=== PATIENT | female | born 1980 | race Caucasian/White ===

== ENCOUNTER 2020-04-14 10:45 | Outpatient (REF) | payer OTHER, SELFPAY ==
[2020-04-15 09:36] LABS: BV Int Neg Control Negative (Negative); BV Int Pos Control Positive (Positive)
[2020-04-15 12:43] LABS: CT PCR NOT DETECTED (Not Detect.); NG PCR NOT DETECTED (Not Detect.)
[2020-04-18 22:07] LABS: HPV mRNA E6/E7 rflx Not Detected (Not Detected)
== END 2020-04-14 10:46 | disposition home or self-care (01) ==
LOC: HO.LAB 10:45
PROVIDERS: PCP Pediatrics; Visit Provider Advanced Practice Midwife
DX: B96.89 Other specified bacterial agents as the cause of diseases classified elsewhere (principal); N76.0 Acute vaginitis; R87.610 Atypical squamous cells of undetermined significance on cytologic smear of cervix (ASC-US); R87.810 Cervical high risk human papillomavirus (HPV) DNA test positive; Z11.8 Encounter for screening for other infectious and parasitic diseases; Z11.3 Encounter for screening for infections with a predominantly sexual mode of transmission; F17.210 Nicotine dependence, cigarettes, uncomplicated
CPT/HCPCS: 87480; 87491; 87510; 87591; 87624; 87625; 87660; 88142; 99212

== ENCOUNTER 2020-05-26 10:44 | Emergency (ER) | payer OTHER, SELFPAY ==
[2020-05-26 10:54] VITALS: BP 137/81; PULSE 116; RESP 19; TEMP 36.7; O2SAT 96; BMI 32.3
[2020-05-26 10:56] VITALS: BP 137/81; PULSE 116; RESP 19; TEMP 36.7; O2SAT 96
--- NOTE | 2020-05-26 11:53 | MHC.RECOVSUP ---
? Reason for consult:Continuity of care o Current location: Bed 03 o Identified substance use concern:ETOH - Support This RC attempted to talk to her, pt. was not receptive to talking to this RC. ? Intervention:N/A ? Plan: N/A o ? Additional information: N/A
--- NOTE | 2020-05-26 11:54 | PC.NURSE ---
[place] contacted for dose verification. Release signed and faxed, awaiting a call back
[2020-05-26 12:32] LABS: MANUAL DIFF FLAG NO
[2020-05-26 12:34] LABS: Basophils Absolute Auto 0.1 X10*3/uL (0.0-0.2); Basophils Percent Auto 0.5 % (0-2); Eosinophils Percent Auto 0.4 % (0-4); Hematocrit 40.5 % (37-47); Hemoglobin 14.4 g/dl (12.0-16.0); Imm Gran Abs Auto 0.03 X10*3/uL (0.00-0.03); Imm Gran Pct Auto 0.3 % (0.0-0.4); Lymphocytes Absolute Auto 3.4 X10*3/uL (1.2-4.9); Lymphocytes Percent Auto 30.9 % (20-40); Mean Corpuscular HGB Conc 35.6 g/dl (31.0-35.0); Mean Corpuscular Hemoglobin 31.4 pg (27.0-33.0); Mean Corpuscular Volume 88.2 fL (80-98); Mean Platelet Volume 9.1 fL (9.4-12.3); Monocytes Absolute Auto 0.7 X10*3/uL (0.1-1.2); Monocytes Percent Auto 6.5 % (2-11); Neutrophils Absolute Auto 6.8 X10*3/uL (2.0-8.3); Neutrophils Percent Auto 61.4 % (45-73); Platelet Count 450 X10*3/uL (160-400); Red Blood Count 4.59 X10*6/uL (4.20-5.50); Red Cell Distribution Width 12.2 % (11.0-16.0); White Blood Count 11.1 X10*3/uL (4.8-10.8)
[2020-05-26 13:01] LABS: Ethanol 273 mg/dL
[2020-05-26 13:08] LABS: Influenza A PCR NEGATIVE (Negative); Influenza B PCR NEGATIVE (Negative); Resp Syncy Virus RNA Qual PCR NEGATIVE (Negative); SARS COV2 PCR INHOUSE NEGATIVE (Negative)
[2020-05-26 13:08] LABS: Amphetamine Screen Urine Not Detected (Not Detect); Barbiturates, Urine Not Detected (Not Detect); Benzodiazepines Screen Urine Not Detected (Not Detect); Cannabinoid Screen Urine Not Detected (Not Detect); Cocaine Screen Urine Not Detected (Not Detect); Opiate Screen Urine Not Detected (Not Detect); Phencyclidine Screen Urine Not Detected (Not Detect)
[2020-05-26 13:09] LABS: Lipase 27 U/L (8-78)
[2020-05-26 13:10] LABS: Alanine Aminotransferase 34 U/L (0-31); Albumin Level 4.6 g/dL (3.5-5.0); Alkaline Phosphatase 66 U/L (39-117); Anion Gap 19 (12-20); Aspartate Amino Transferase 31 U/L (5-31); Bilirubin Direct 0.2 mg/dL (0.0-0.5); Bilirubin Total 0.4 mg/dL (0.0-1.0); Blood Urea Nitrogen 8 mg/dL (9-16); Calcium 8.9 mg/dL (8.4-10.2); Carbon Dioxide 18 mmol/L (22-29); Chloride 108 mmol/L (96-108); Creatinine Clr Calc Pharmacy 125.3; Estimated Glomerular Filt Rate > 60; Glucose Random 142 mg/dL (60-115); Magnesium 2.1 mg/dL (1.6-2.6); Potassium 3.1 mmol/l (3.3-5.1); Sodium 142 mmol/L (135-145); Total Protein 7.3 g/dL (6.5-8.0)
[2020-05-26 13:16] LABS: HCG Quantitative < 2 mIU/mL
[2020-05-26] MEDS: Potassium Chloride Packet 20 MEQ PACKET 40 MEQ PO (13:50)
--- NOTE | 2020-05-26 14:53 | ED.PSYCH ---
HPI - Psych General Chief Complaint: Psychiatric Symptoms Stated Complaint: crisis Time Seen by Provider: 05/26/20 11:19 Source: patient Mode of arrival: ambulatory Limitations: no limitations History of Present Illness HPI Narrative: 39yoF c PMHx of alcoholism, depression and mental illness presenting to the ED c c/o increased depression with SI thoughts and not feeling safe at home due to she is drinking a lot alcohol and she has a young children at home the youngest is 2 years old. She reports she was sober for a year and then relapsed in the past 10 days and she drank 6 nips today. She denies drug usage. Reports she has an apartment to stay in with her children. Denies any HI/auditory visual hallucination or any self-injury mcclendon. Denies any fevers, chills, headaches, dizziness, change in vision, sore throat, chest pain, shortness of breath, cough, abdominal pain, back pain, rashes, dysuria, diarrhea or constipation or any other symptoms complaints or concerns at this time. Related Data Home Medications Medication Instructions Recorded Confirmed fluoxetine 40 mg capsule 40 mg PO DAILY 04/01/20 05/26/20 buprenorphine-naloxone [Suboxone] 1 film SUBLINGUAL DAILY 05/26/20 05/26/20 doxepin 3 cap PO BEDTIME 05/26/20 05/26/20 quetiapine 1 - 3 tab PO BEDTIME 05/26/20 05/26/20 Allergies Allergy/AdvReac Type Severity Reaction Status Date / Time No Known Allergies Allergy Verified 04/01/20 09:24 [No Known Allergies*] Review of Systems Review of Systems: Constitutional : No Fever, No Chills ENT/Mouth : No Ear Pain, No Nasal Congestion, No sore throat Eyes: No Eye Pain, No Swelling, No Redness Cardiovascular : No Chest Pain, No SOB Respiratory : No Cough, No Sputum, No Dyspnea Gastrointestinal : No ingestions, No Nausea, No Vomiting, No Diarrhea, No Hematochezia, No Melena Genitourinary : No Dysuria, No Urinary Frequency, No Hematuria Musculoskeletal : No Myalgias Skin : No Skin Lesions, No rash Neuro : No Weakness, No Numbness, No Paresthesias, No Dizziness, No Headache Psych : + Anxiety, + Depression, + SI, + thoughts of self injury, No HI, No AVH, Heme/Lymph: No Lymphadenopathy Endocrine : No Polyuria, No Polydipsia Yes all other systems are reviewed and are negative [facility] Past Medical History Attestation statement: The following information was validated with the patient. Medical History Alcohol dependence ASCUS with positive high risk HPV Depression Hypertriglyceridemia Left foot drop Substance abuse Trichomonas contact, treated Surgical History History of breast lump removal Hx of appendectomy Hx of tonsillectomy Family History Family History Maternal Grandmother History of quadruple bypass Diabetes mellitus CVD (cardiovascular disease) Social History Social History Alcohol intake: current Alcohol intake frequency: 3 or more drinks per day Alcohol type: hard liquor Smoking Status: Current every day smoker Tobacco Type: Cigarette Cigarettes Per Day: 10 Smoked in Last 30 Days: Yes Use of substances other than those prescribed or required for medical reasons: No Any prior treatment program specific to substance use: Yes Advance Directives: No Advance Directives Information Provided: No Gender identity: female Physical Exam Vital Signs: Vital Signs: Last Vital Signs Temp 98.0 F 05/26/20 10:56 Pulse 116 H 05/26/20 10:56 Resp 19 05/26/20 10:56 BP 137/81 05/26/20 10:56 Pulse Ox 96 05/26/20 10:56 Body Mass Index 32.3 vital signs have been reviewed as normal and appeared to be correct. Blood pressure normal. Heart rate normal. Respiration rate normal. Temperature normal. Oxygen saturation normal. Appearance: Alert. Oriented X3. Very tearful although No acute distress. Head: Normal external exam. Normocephalic. Atraumatic. No Hammond signs noted. No raccoon eyes noted Eyes: PERRLA. EOMI. Conjunctiva and sclera normal. Eyelids normal. ENT: EAC normal. TM's Normal. Pharynx normal. Uvula midline. Moist mucous membranes. No trismus noted. No drooling noted. No muffled voice noted. Neck: Normal inspection. Neck supple. FROM. No adenopathy. Thyroid Normal. No meningeal signs. No neck mass noted. CVS: Normal heart rate and rhythm. Heart sound normal. No murmurs noted. Pulses normal throughout. Respiratory: No respiratory distress. Painless inspiration. Breath sounds normal. No wheezes/rales/rhonchi noted. Chest nontender. No accessory muscle usage noted or decreased air movement noted. Abdomen: Soft and nontender. Bowel sounds normal in all 4 quadrants. No distention noted. No organomegaly noted. No visible injury noted. Back: No CVA tenderness. Full range of motion noted. Skin: Skin warm and dry. Normal skin color. Normal skin turgor. No rashes/lesions/lacerations noted. Extremities: No lower extremity edema. Extremities exhibit normal range of motion. Extremities nontender. Neuro: Oriented X 3. No motor deficit. No sensory deficit. Reflexes normal. Psych: Appearance grossly normal, well-kept, mental status normal, speech is pressured. movement normal, speech clear, patient appears very sad and anxious along with depressed. Is cooperative. Normal thought process. Normal thought content. Does not have good insight. Does not have good Judgment. Course Course Course Narrative: 11:20am - 39yoF c PMHx of alcoholism, depression and mental illness presenting to the ED c c/o increased depression with SI thoughts. and recent relapse on ETOH. - Plan: Labs, UA, Drug urine screen. Provide 2 mg of Ativan then obtain a BHN evaluation once medically clear. Reevaluation(s) Reevaluation #1: - mild leukocytosis at 11,000. - potassium 3.1. - ALT 34. - ETOH level 273 - All other labs WNL - 40 mEq of p.o. potassium ordered at this time. Patient is currently resting respirations even and unlabored in no apparent distress. - patient medically cleared at this time awaiting BHN evaluation. Will continue to monitor. Time: 13:13 [facility] - Psych Restraints Face to Face Assessment: Face to Face Assessment: Current Situation: After assessment of the patient, a review of the pertinent medical record and a discussion with nursing staff, I feel the patient requires a restrain intervention. Reaction To: [] Medical Condition: [] Behavioral State: [] Continued Need: [] Medical Records Attestation: I reviewed the patient's medical records. Lab Data Result diagrams: 05/26/20 12:11 05/26/20 12:11 Labs: Lab Results 05/26/20 05/26/20 05/26/20 Range/Units 11:56 12:11 12:11 WBC 11.1 H (4.8-10.8) X10*3/uL RBC 4.59 (4.20-5.50) X10*6/uL Hgb 14.4 (12.0-16.0) g/dl Hct 40.5 (37-47) % MCV 88.2 (80-98) fL MCH 31.4 (27.0-33.0) pg MCHC 35.6 H (31.0-35.0) g/dl RDW 12.2 (11.0-16.0) % Plt Count 450 H (160-400) X10*3/uL MPV 9.1 L (9.4-12.3) fL Immature Gran % (Auto) 0.3 (0.0-0.4) % Neut % (Auto) 61.4 (45-73) % Lymph % (Auto) 30.9 (20-40) % Candler % (Auto) 6.5 (2-11) % Eos % (Auto) 0.4 (0-4) % Baso % (Auto) 0.5 (0-2) % Lymph # (Auto) 3.4 (1.2-4.9) X10*3/uL Candler # (Auto) 0.7 (0.1-1.2) X10*3/uL Eos # (Auto) 0.0 (0.0-0.4) X10*3/uL Baso # (Auto) 0.1 (0.0-0.2) X10*3/uL Abs Immat Gran (auto) 0.03 (0.00-0.03) X10*3/uL Absolute Neuts (auto) 6.8 (2.0-8.3) X10*3/uL Absolute Nucleated RBC 0.000 (0.0-0.012) X10*3/uL Nucleated RBC % (auto) 0.0 (0.0-0.2) /100WBC Hold Purple Top Hold Blue Top SEE NOTE Sodium (135-145) mmol/L Potassium (3.3-5.1) mmol/l Chloride (96-108) mmol/L Carbon Dioxide (22-29) mmol/L Anion Gap (12-20) BUN (9-16) mg/dL Creatinine (0.5-1.4) mg/dL Estim Creat Clear Calc Estimated GFR Random Glucose (60-115) mg/dL Calcium (8.4-10.2) mg/dL Magnesium (1.6-2.6) mg/dL Total Bilirubin (0.0-1.0) mg/dL Direct Bilirubin (0.0-0.5) mg/dL AST (5-31) U/L ALT (0-31) U/L Alkaline Phosphatase (39-117) U/L Total Protein (6.5-8.0) g/dL Albumin (3.5-5.0) g/dL Lipase (8-78) U/L Beta HCG, Quant mIU/mL Urine Opiates Screen Not Detected (Not Detect) Ur Barbiturates Screen Not Detected (Not Detect) Ur Phencyclidine Scrn Not Detected (Not Detect) Ur Amphetamines Screen Not Detected (Not Detect) U Benzodiazepines Scrn Not Detected (Not Detect) Urine Cocaine Screen Not Detected (Not Detect) U Marijuana (THC) Screen Not Detected (Not Detect) Ethyl Alcohol mg/dL Coronavirus (PCR) (Negative) Influenza Type A (PCR) (Negative) Influenza Type B (PCR) (Negative) RSV RNA Qual (PCR) (Negative) 05/26/20 05/26/20 05/26/20 Range/Units 12:11 12:11 12:11 WBC (4.8-10.8) X10*3/uL RBC (4.20-5.50) X10*6/uL Hgb (12.0-16.0) g/dl Hct (37-47) % MCV (80-98) fL MCH (27.0-33.0) pg MCHC (31.0-35.0) g/dl RDW (11.0-16.0) % Plt Count (160-400) X10*3/uL MPV (9.4-12.3) fL Immature Gran % (Auto) (0.0-0.4) % Neut % (Auto) (45-73) % Lymph % (Auto) (20-40) % Candler % (Auto) (2-11) % Eos % (Auto) (0-4) % Baso % (Auto) (0-2) % Lymph # (Auto) (1.2-4.9) X10*3/uL Candler # (Auto) (0.1-1.2) X10*3/uL Eos # (Auto) (0.0-0.4) X10*3/uL Baso # (Auto) (0.0-0.2) X10*3/uL Abs Immat Gran (auto) (0.00-0.03) X10*3/uL Absolute Neuts (auto) (2.0-8.3) X10*3/uL Absolute Nucleated RBC (0.0-0.012) X10*3/uL Nucleated RBC % (auto) (0.0-0.2) /100WBC Hold Purple Top SEE NOTE Hold Blue Top Sodium 142 (135-145) mmol/L Potassium 3.1 L (3.3-5.1) mmol/l Chloride 108 (96-108) mmol/L Carbon Dioxide 18 L (22-29) mmol/L Anion Gap 19 (12-20) BUN 8 L (9-16) mg/dL Creatinine 0.67 (0.5-1.4) mg/dL Estim Creat Clear Calc 125.3 Estimated GFR > 60 Random Glucose 142 H (60-115) mg/dL Calcium 8.9 (8.4-10.2) mg/dL Magnesium 2.1 (1.6-2.6) mg/dL Total Bilirubin 0.4 (0.0-1.0) mg/dL Direct Bilirubin 0.2 (0.0-0.5) mg/dL AST 31 (5-31) U/L ALT 34 H (0-31) U/L Alkaline Phosphatase 66 (39-117) U/L Total Protein 7.3 (6.5-8.0) g/dL Albumin 4.6 (3.5-5.0) g/dL Lipase (8-78) U/L Beta HCG, Quant < 2 mIU/mL Urine Opiates Screen (Not Detect) Ur Barbiturates Screen (Not Detect) Ur Phencyclidine Scrn (Not Detect) Ur Amphetamines Screen (Not Detect) U Benzodiazepines Scrn (Not Detect) Urine Cocaine Screen (Not Detect) U Marijuana (THC) Screen (Not Detect) Ethyl Alcohol mg/dL Coronavirus (PCR) (Negative) Influenza Type A (PCR) (Negative) Influenza Type B (PCR) (Negative) RSV RNA Qual (PCR) (Negative) 05/26/20 05/26/20 05/26/20 Range/Units 12:11 12:11 12:12 WBC (4.8-10.8) X10*3/uL RBC (4.20-5.50) X10*6/uL Hgb (12.0-16.0) g/dl Hct (37-47) % MCV (80-98) fL MCH (27.0-33.0) pg MCHC (31.0-35.0) g/dl RDW (11.0-16.0) % Plt Count (160-400) X10*3/uL MPV (9.4-12.3) fL Immature Gran % (Auto) (0.0-0.4) % Neut % (Auto) (45-73) % Lymph % (Auto) (20-40) % Candler % (Auto) (2-11) % Eos % (Auto) (0-4) % Baso % (Auto) (0-2) % Lymph # (Auto) (1.2-4.9) X10*3/uL Candler # (Auto) (0.1-1.2) X10*3/uL Eos # (Auto) (0.0-0.4) X10*3/uL Baso # (Auto) (0.0-0.2) X10*3/uL Abs Immat Gran (auto) (0.00-0.03) X10*3/uL Absolute Neuts (auto) (2.0-8.3) X10*3/uL Absolute Nucleated RBC (0.0-0.012) X10*3/uL Nucleated RBC % (auto) (0.0-0.2) /100WBC Hold Purple Top Hold Blue Top Sodium (135-145) mmol/L Potassium (3.3-5.1) mmol/l Chloride (96-108) mmol/L Carbon Dioxide (22-29) mmol/L Anion Gap (12-20) BUN (9-16) mg/dL Creatinine (0.5-1.4) mg/dL Estim Creat Clear Calc Estimated GFR Random Glucose (60-115) mg/dL Calcium (8.4-10.2) mg/dL Magnesium (1.6-2.6) mg/dL Total Bilirubin (0.0-1.0) mg/dL Direct Bilirubin (0.0-0.5) mg/dL AST (5-31) U/L ALT (0-31) U/L Alkaline Phosphatase (39-117) U/L Total Protein (6.5-8.0) g/dL Albumin (3.5-5.0) g/dL Lipase 27 (8-78) U/L Beta HCG, Quant mIU/mL Urine Opiates Screen (Not Detect) Ur Barbiturates Screen (Not Detect) Ur Phencyclidine Scrn (Not Detect) Ur Amphetamines Screen (Not Detect) U Benzodiazepines Scrn (Not Detect) Urine Cocaine Screen (Not Detect) U Marijuana (THC) Screen (Not Detect) Ethyl Alcohol 273 mg/dL Coronavirus (PCR) NEGATIVE (Negative) Influenza Type A (PCR) NEGATIVE (Negative) Influenza Type B (PCR) NEGATIVE (Negative) RSV RNA Qual (PCR) NEGATIVE (Negative) Discharge Plan Discharge Clinical Impression: Depression, Suicidal ideation, Acute anxiety, Acute alcohol intoxication Prescriptions: No Action buprenorphine-naloxone [Suboxone] 8-2 mg film 1 film sublingual DAILY RF: 0 quetiapine 25 mg tablet 1 - 3 tab PO BEDTIME RF: 0 doxepin 25 mg capsule 3 cap PO BEDTIME RF: 0
--- NOTE | 2020-05-26 15:52 | MHC.CARE ---
Addendum entered by Bing Mohan [facility] 05/26/20 16:36: CARE Team confirms that fax was received by [facility] and plan is for pt to be assessed between 1899 and 1999. Original Note: CARE Team speaks with Steph from [facility] crisis services. Pt was referred to [facility] for assessment, however, given BAL of 273 at 1211, pt will not be able to be assessed until approx 7PM. [facility] agrees to send a clinician between 1899 and 1999. This information is communicated to ED nurse.
[2020-05-26 16:29] VITALS: BP 107/76; PULSE 111; RESP 18; TEMP 37; O2SAT 95
--- NOTE | 2020-05-26 19:23 | PC.NURSE ---
Report received. PT sleeping in her room. Breathing is even and unlabored. PT waiting to be seen by N.
[2020-05-26 21:28] VITALS: BP 143/93; PULSE 91; RESP 20; TEMP 36.8; O2SAT 97
[2020-05-26] MEDS: QUEtiapine Fumarate 25 MG TABLET PO (21:33)
[2020-05-26] MEDS: LORazepam 1 MG TABLET 2 MG PO (21:33)
--- NOTE | 2020-05-26 21:40 | ECG_ITS ---
Test Reason : CHESTPAIN Blood Pressure : / mmHG Vent. Rate : 087 BPM Atrial Rate : 087 BPM P-R Int : 148 ms QRS Dur : 076 ms QT Int : 380 ms P-R-T Axes : 074 078 073 degrees QTc Int : 457 ms Normal sinus rhythm Normal ECG When compared with ECG of 30-JAN-2020 12:59, No significant change was found Referred By: Margarita Lindsey Electronically Signed By:ADARSH CROCKETT
[2020-05-26] MEDS: Doxepin HCl 25 MG CAPSULE 75 MG PO (21:43)
[2020-05-26 23:40] VITALS: BP 112/63; PULSE 85; RESP 18; TEMP 36.4; O2SAT 97
--- NOTE | 2020-05-27 00:32 | PC.NURSE ---
BHN at bedside.
--- NOTE | 2020-05-27 03:11 | PC.NURSE ---
Seen by CODEY. Plan is to provide PT with resources for detox and discharge in the morning.
[2020-05-27 06:00] VITALS: BP 104/74; PULSE 83; RESP 18; TEMP 36.7; O2SAT 95
--- NOTE | 2020-05-27 07:02 | PC.NURSE ---
Report recieved. Pt currently sleeping, respirations even and unlabored, in no apparent distress.
--- NOTE | 2020-05-27 09:01 | PC.NURSE ---
Addendum entered by Bruna Mckeon 05/27/20 09:11: After making phone calls pt stated she was feeling anxious and starting to feel some symptoms of withdrawal. Pt asking for ativan at this time. Pt medicated per EMAR. Original Note: Pt currently calling detox, calm and cooperative, aware of plan of care. PT denies complaints, denies symptoms of withdrawal at this time.
[2020-05-27] MEDS: Buprenorphine/Naloxone 8/2 mg FILM 1 FILM SUBLINGUAL (09:13)
[2020-05-27] MEDS: LORazepam 1 MG TABLET 2 MG PO (09:13)
[2020-05-27 09:16] VITALS: BP 136/88; PULSE 121; TEMP 36.4; O2SAT 97
--- NOTE | 2020-05-27 11:43 | MHC.RECOVSUP ---
Recovery Support note: Patient has been accepted to [facility] for a 3PM admission. [facility] requires patient to have prescribed medications in her possession prior to arrival. Discussed case with patient's RN and ED provider, provider will group underwriter a prescription for the necessary medications. Patient reports she has transportation and will be able to go to the pharmacy on to get the medications on her way to [facility]. This group underwriter available to assist with transportation if this does not work out.
== END 2020-05-27 12:07 | disposition home or self-care (01) ==
PROVIDERS: Physician Assistant Medical; Emergency Provider Emergency Medicine Emergency Medical Services; PCP Pediatrics
DX: F33.1 Major depressive disorder, recurrent, moderate (principal); R45.851 Suicidal ideations; F41.1 Generalized anxiety disorder; F43.0 Acute stress reaction; F10.129 Alcohol abuse with intoxication, unspecified; Y90.8 Blood alcohol level of 240 mg/100 ml or more; Z11.59 Encounter for screening for other viral diseases; F17.210 Nicotine dependence, cigarettes, uncomplicated; Z71.6 Tobacco abuse counseling; Z79.899 Other long term (current) drug therapy
CPT/HCPCS: 0241U; 36415; 80048; 80076; 80307; 80320; 83690; 83735; 84702; 85025; 93005; 99285; J0574

== ENCOUNTER 2020-07-20 09:46 | Outpatient (REF) | payer OTHER, SELFPAY | END 2020-07-20 09:47 | disposition home or self-care (01) | LOC: HO.LAB 09:46 | PROVIDERS: PCP Pediatrics; Visit Provider Obstetrics & Gynecology | DX: R87.610 Atypical squamous cells of undetermined significance on cytologic smear of cervix (ASC-US) (principal); R87.810 Cervical high risk human papillomavirus (HPV) DNA test positive; E78.1 Pure hyperglyceridemia; F19.10 Other psychoactive substance abuse, uncomplicated; F10.20 Alcohol dependence, uncomplicated; F32.9 Major depressive disorder, single episode, unspecified; F17.210 Nicotine dependence, cigarettes, uncomplicated | CPT/HCPCS: 57454; 88305 ==

== ENCOUNTER → 2020-08-03 15:11 | Outpatient (BNVA) | payer OTHER, SELFPAY | PROVIDERS: PCP Pediatrics; Visit Provider Obstetrics & Gynecology ==

== ENCOUNTER → 2021-10-11 08:37 | Outpatient (BNVA) | payer OTHER, SELFPAY | PROVIDERS: Visit Provider Physician Assistant | DX: Z13.89 Encounter for screening for other disorder (principal) | CPT/HCPCS: 99203 ==

== ENCOUNTER → 2021-10-13 09:38 | Outpatient (BNVA) | payer OTHER, SELFPAY | PROVIDERS: Visit Provider Physician Assistant | DX: Z13.89 Encounter for screening for other disorder (principal) | CPT/HCPCS: 99213 ==

== ENCOUNTER 2021-11-16 16:35 | Outpatient (REF) | payer OTHER, SELFPAY ==
[2021-11-22 22:56] LABS: HPV mRNA E6/E7 rflx Not Detected (Not Detected)
== END 2021-11-16 16:36 | disposition home or self-care (01) ==
LOC: HO.LNP 16:35
PROVIDERS: Visit Provider Obstetrics & Gynecology
DX: Z01.419 Encounter for gynecological examination (general) (routine) without abnormal findings (principal); Z11.51 Encounter for screening for human papillomavirus (HPV)
CPT/HCPCS: 87624; 88142

== ENCOUNTER 2022-02-15 12:45 | Outpatient (REF) | payer OTHER, SELFPAY ==
--- NOTE | 2022-02-15 15:18 | MHC.AU.ANO ---
Adult Audiological Evaluation Date of Visit: 02/15/22 Reason for Appointment: Since having COVID about 10 months ago, patient has been experiencing increased hearing difficulty and pressure in her ears. 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 She is unable to understand patients and colleagues unless she is close to them and [id number]. The pressure in her ears will occasionally clear if tries to pop her ears, but it doesn't take long for the pressure and hearing difficulty to build back up again. 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 Otoscopy: Right Ear: Thick, yellow fluid behind TM Left Ear: Thick, yellow fluid behind TM Tympanometry: Tympanometry performed due to: To assess integrity of the middle ear system Right Ear: Non-compliant Middle Ear System (Type B) Left Ear: Non-compliant Middle Ear System (Type B) Otoacoustic Emissions: Did not test due to extent of middle ear dysfunction Hearing Evaluation: Transducer(s) Used: Insert Earphones Method: Conventional Audiometry Stimuli Used: Pure Tones Right Ear: Description of Hearing: Mild conductive hearing loss from 250-2000 Hz, rising to normal by 8000 Hz Left Ear: Description of Hearing: Mild conductive hearing loss from 250-2000 Hz, rising to normal by 8000 Hz Speech Recognition Threshold (SRT): Method Used: Recorded Lists Stimuli Used: Spondee Words Right Ear: 20 dBHL Left Ear: 25 dBHL Word Discrimination: Method: Recorded Lists Word Lists Used: W-22 Right Ear: 100% at 60 dBHL Left Ear: 100% at 60 dBHL Interpretation of Results: Patient presents with thick, yellow fluid noted behind tympanic membranes and flat, Type B, tympanograms. Mild conductive hearing loss is present bilaterally. At the moment, sound likely has a muffled or dull quality, as if one is listening underwater. It can be difficult to understand speech, especially if there is background noise, if someone is talking from a distance, or if someone is speaking softly. Recommendations: Referral to Ear, Nose, and Throat is highly recommended. In the meantime, follow-up with the PCP may be warranted to discuss short-term management of the middle ear dysfunction. Diagnosis: Primary Diagnosis: H90.0 Conductive Hearing Loss, Bilateral Secondary Diagnosis: H69.93 Unspecified Eustachian Tube Dysfunction, Bilateral Signature: Provider: Jon Stevenson, CCC-A
== END 2022-02-15 12:46 | disposition home or self-care (01) ==
LOC: HO.SH 12:45
PROVIDERS: Visit Provider Student in an Organized Health Care Education/Training Program
DX: Z01.118 Encounter for examination of ears and hearing with other abnormal findings (principal); H90.0 Conductive hearing loss, bilateral; H69.93 Unspecified Eustachian tube disorder, bilateral
CPT/HCPCS: 92557; 92567

== ENCOUNTER 2025-03-10 13:37 | Outpatient (AMB) | payer OTHER, SELFPAY ==
--- NOTE | 2025-03-10 13:39 | A.OFFVIS_ITS ---
Vital Signs 03/10/25 13:44 Height 5 ft 4 in Weight 210 lb BMI 36.0 BP 122/64 Blood Pressure Location Rt brachial Position Sitting Pulse 92 Pulse Source Pulse Oximeter Pulse Oximetry (%) 96 Oxygen Delivery Method Room Air Intake Visit Reasons: Colonoscopy Screening Intake Note: Patient new consult for pre Colonoscopy screening Patient cc: Pt denies any GI sx or concerns at this time. No pertinent surgical or FMHx. Rope Twisting Machine Operator Required: No Accompanied by: Self / Same As Patient Allergies No Known Allergies (No Known Allergies*) Allergy (Verified 03/10/25 13:39) Medication List - Last Reconciled 03/10/25 by Cathy Crowder CNP atorvastatin 10 mg PO DAILY buprenorphine-naloxone 8-2 mg (Suboxone) 1 film sublingual DAILY fluoxetine 40 mg PO QAM quetiapine mg PO valacyclovir (Valtrex) 500 mg PO BID PRN HPI HPI Colonoscopy Screening: Details: Patient is a 44-year-old female with PMH of depression, sleep apena, opioid use disorder in remission. Referred by PCP for pre colonoscopy screening. Vani reports bowel movements every other day, which is reduced from her prior baseline of once daily. She notes this change may be related to recent weight gain. She recalls an episode of constipation over a year ago, relieved with [id number] laxatives, but has not experienced significant constipation since. Current stools are solid and large, not hard or pellet-like; she describes needing to push but not strain excessively. Appetite is good, and there has been no recent fever or illness. She reports weight gain but no unexplained weight loss. Comorbid conditions include severe sleep apnea (not yet on CPAP) and dyslipidemia managed with atorvastatin. She has a remote history of alcohol use disorder, now on Suboxone, and reports being off alcohol for six years. She recently noted transient, non-itchy, warm reddish patches on her legs, partially resolved, consistent with her self-described concerns for cellulitis; she reports no new medications or exposures and links the rash temporally with her weight changes. Patient denies: fever/chills, n/v, appetite changes, pyrosis, regurgitation,dysphasia, unintentional wt loss, ab pain or melena/hematochezia. Social hx: -ETOH cessation six years ago -Remote cocaine and prescription opioid misuse (oral, no IV), currently on Suboxone for alcohol cessation, denies active recreational drug use -current 1/2 ppd smoker -[facility] - family hx as below -denies personal hx of CA -denies significant cardiopulmonary history, expect where documented. -tolerated anesthesia in the past without difficulty. [facility] Medical History (Updated 03/10/25 @ 14:29 by Cathy Crowder CNP) Rash Sleep apnea Dyslipidemia Constipation Colon cancer screening Trichomonas contact, treated ASCUS with positive high risk HPV Substance abuse Depression Left foot drop Hypertriglyceridemia Alcohol dependence Surgical History History of breast lump removal Hx of tonsillectomy Hx of appendectomy Family History (Updated 03/10/25 @ 13:55 by Cathy Crowder CNP) Maternal Grandmother History of quadruple bypass Diabetes mellitus CVD (cardiovascular disease) Paternal Grandfather Colon cancer screening Social History Alcohol intake: current Alcohol intake frequency: 3 or more drinks per day Alcohol type: hard liquor Comment: Helped relieve withdrawal symptoms Cigarettes Per Day: 10 Gender identity: Female Female Reproductive History Menstrual Age of Menarche: 10 Review of Systems Const Reports as per HPI ENT Reports as per HPI Card Reports as per HPI Resp Reports as per HPI GI Reports as per HPI Reports as per HPI Physical Exam Vital Signs: Last Vital Signs Pulse 92 03/10/25 13:44 BP 122/64 03/10/25 13:44 Pulse Ox 96 03/10/25 13:44 Oxygen Delivery Method Room Air 03/10/25 13:44 BMI result Body Mass Index 36.0 Const General: healthy appearing, no acute distress and well developed Nutritional Appearance: average body habitus Orientation/consciousness: patient oriented x3 HEENT Head: Yes normal to inspection, Yes normocephalic and Yes atraumatic Face and sinus: Yes normal facial exam Mouth: lip normal Eyes General: appearance normal, both eyes and all related structures Neck Neck: Yes normal visual inspection Resp Effort & Inspection: normal respiratory effort, able to speak in complete sentences, no tracheal deviation and symmetric chest movement Cardio Jugular venous distension: no JVD Heart sounds: Murmur heart sound present GI Inspection: Yes obesity Neuro General: patient oriented x3 Gait exam (Neuro): Normal gait present Psych Appearance: grossly normal Mental Status: mental status grossly normal Speech and movement: Normal speech and movement present Affect: normal affect Attitude: cooperative Thought process: Normal thought process present Thought content: Normal thought content present Insight: Good insight present (Psych) Judgement: Good judgement present (Psych) Assessment & Plan Assessment & Plan (1) Colon cancer screening: Code(s): Z12.11 - Encounter for screening for malignant neoplasm of colon Category: Medical Plan: Due for index screening colonoscopy. No alarm features Medications: -prescriptions for laxative tablets and PEG sent to pharmacy; instructions on clear liquid diet given. Patient educated on scheduling process, procedure preparation, including avoiding certain foods and ensuring clear liquid intake Advised on necessity for ride post-procedure due to sedation. (2) Constipation: Code(s): K59.00 - Constipation, unspecified Category: Medical Qualifiers: Constipation type: unspecified constipation type Qualified Code(s): K59.00 - Constipation, unspecified Plan: Mild constipation. BMs every other day, solid/large stools, needs to push but no excessive straining, responds to OTC laxatives - Additional Testing: None specific unless symptoms worsen - Medication Management: Short-term augmentative bowel regimen (per protocol for colonoscopy prep) - Lifestyle Recommendations: Maintain adequate hydration, fiber intake; review bowel habits after colonoscopy - Follow-Up: Reassess bowel function post-procedure (3) Dyslipidemia: Code(s): E78.5 - Hyperlipidemia, unspecified Category: Medical Plan: Known hypercholesterolemia, on atorvastatin, previously elevated cholesterol Additional Testing: Lipid profile as part of fasting labs Medication Management: Continue atorvastatin Lifestyle Recommendations: Encourage ongoing dietary management, follow up with PCP/specialist as arranged Follow-Up: As scheduled with PCP for lipid management (4) Sleep apnea: Code(s): G47.30 - Sleep apnea, unspecified Category: Medical Qualifiers: Sleep apnea type: unspecified type Qualified Code(s): G47.30 - Sleep apnea, unspecified Plan: Severe obstructive sleep apnea per pt. Recently diagnosed by sleep study, not yet on treatment - Additional Testing: None requested at this visit; patient arranging for CPAP - Medication Management: None initiated here - Lifestyle Recommendations: Prompt initiation of CPAP; encourage sleep hygiene, weight management - Follow-Up: As arranged with PCP/sleep medicine (5) Rash: Code(s): R21 - Rash and other nonspecific skin eruption Category: Medical Plan: Recent, partially resolved, non-itchy, reported as warm erythroderma; not clearly infectious/dermatologic at present. No alarm features. Additional Testing: Consider dermatology or PCP eval if rash recurs or worsens Medication Management: None at present Lifestyle Recommendations: Monitor for recurrence, signs of infection; optimize skin hygiene Follow-Up: Seek medical attention if symptoms return/progress (pain, fever, persistent redness, swelling) Plan Follow-up after colonoscopy or sooner as needed Time: I spent a total of 30 minutes on the date of encounter which includes: Preparing to see the patient (reviewed previous documentation, test results and medical history) Performing a medically appropriate exam and/or evaluation Ordering medications, tests, and procedures Documenting clinical information in the health record Orders: Orders Complete Blood Count Auto Diff Today Cathy Crowder CNP Z12.11 - Encounter for screening for malignant neoplasm of colon Comprehensive [place]. Panel Fast Today Cathy Crowder CNP Z12.11 - Encounter for screening for malignant neoplasm of colon Lipid Panel Today Cathy Crowder CNP E78.5 - Hyperlipidemia, unspecified Referrals GI Procedure Notification Cathy Crowder CNP Z12.11 - Encounter for screening for malignant neoplasm of colon Medications: New simethicone (Gas Relief (simethicone)) per colonoscopy prep instructions 125 mg PO ONCE 4 caps 0RF abdominal distention Cathy Crowder CNP peg 3350-electrolytes 236-22.74-6.74 -5.86 gram until fecal effluent is clear 240 mL PO ONCE 4,000 mL 0RF Cathy Crowder CNP bisacodyl Take per colonoscopy instructions 5 mg PO ONCE 4 tabs 0RF Cathy Crowder CNP Changed From valacyclovir (Valtrex) Start on the 1st day of the outbreak 500 mg PO BID 3 days 6 tabs 3RF To valacyclovir (Valtrex) Start on the 1st day of the outbreak 500 mg PO BID PRN Vernon Lorenz MD Coding Level of Care Code New Pt New Pt Level 3 (09544) Patient Type New Diagnoses Colon cancer screening Z12.11 Constipation, unspecified constipation type K59.00 Constipation type: unspecified constipation type Dyslipidemia E78.5 Sleep apnea, unspecified type G47.30 Sleep apnea type: unspecified type Rash R21
[2025-03-10 13:44] VITALS: BP 122/64; PULSE 92; O2SAT 96; BMI 36.0
--- OUTSIDE RECORDS SUMMARY | 2025-03-10 17:23 | XMS_ITS | Patient Health Record ---
Author Organization [facility] Address [address] [place] [address] Care Team Providers Care Blasting Contract Man Name Role Phone Joaquín Spring MD Primary Care Provider Unavail able Nathalia Ramirez Unavailable [phone] Allergies No Known Allergies Reason For Referral No Information Medications Medication SIG (Take, Route, Frequency, Duration) Notes Start Date End Date Status QUEtiapine Fumarate 100 MG Oral; Duration: 30 Days Active Suboxone 8-2 MG Sublingual; Duration : 28 Days Active Doxepin HCl 25 MG Oral; Duration: 30 Days Active Social History Tobacco Use: Social History Observation Description Date Details (start date - stop date) Current Smoker NA - NA Tobacco Use/Smoking Question Answer Notes Are you a: current smoker How many cigarettes a day do you smoke? 6-10 Alcohol Screen Question Answer Notes Did you have a drink containing alcohol in the p ast year? No Points 0 Interpretation Negative Tobacco use other than smoking: Question Answer Notes Are you an other tobacco user? No Problems Problem Type SNOMED Code ICD Code Onset Dates Problem Status W/U Status Risk Notes Problem Acquired hallux valgus (38355985) Hallux valgus (acquired), right foot (M20.11) Active confirmed Problem Smoker (67108119) Smoker (F17.200) Active confirmed Plan Of Treatment No Information Insurance Providers Payer Name Payer Address Payer Phone Subscriber Number Group Number Insured Name Patient Relationship to Insured Coverage Start Date Coverage End Date Blue Benefits [address] [address] [place] [address] [id number] Vani Pak Self - patient is the insured Medical (General) History Medical History History ICD Code Chicken pox Surgical History Surgery Date(Month/Year) appendectomy 1995 tonsillectomy 1996
--- OUTSIDE RECORDS SUMMARY | 2025-03-10 17:23 | XMS_ITS | Encounter Summary ---
Author Organization [employer] Address [address] [place] [address] [address] [place] [address] Care Team Providers Care Pinion Polisher Name Role Phone Edy Lees DDS Primary Care Provider Encounter Details Date Type Department Care Team (Late st Contact Info) Description 12/18/2023 Orders Only [facility] ADULT DENTAL [address] [place] [address] Michelle Manning DDS [address] [place] [address] Social History Tobacco Use Types Packs/Day Years Used Date Smoking Tobacco: Every Day Cigarettes Smokeless Tobacco: Never Alcohol Use Standard Drinks/Week Comments Defer 0 (1 standard drink = 0.6 oz pur e alcohol) Comments Unknown Sex and Gender Information Value Date Recorded Sex Assigned at Female 03/26/2022 10:15 AM EDT Legal Sex Female 10:15 AM EDT Gender Identity Female 03/26/2022 10:15 AM EDT Sexual Orientation Straight 03/26/2022 10 :15 AM EDT documented as of this encounter Plan of Treatment Upcoming Encounters Date Type Department Care Team (Late st Contact Info) Description 05/05/2025 2:00 PM EST Office Visit [facility] ADULT DENTAL [address] [place], [place] [id number] Glen Watkins, AGATA [address] [place] [address] documented as of this encounter Visit Diagnoses Not on filedocumented in this encounter Care Teams Pinion Polisher Relationship Specialty Start Date End Date Edy Lees DDS [address] [place] [address] PCP - General Dentist 03/23/22 documented as of this encounter
--- OUTSIDE RECORDS SUMMARY | 2025-03-10 17:23 | XMS_ITS | Encounter Summary ---
Author Organization [employer] Address [address] [place] [address] [address] [place] [address] Care Team Providers Care Author Agent Name Role Phone Nabeel, Edy DDRiley Primary Care Provider [phone] Reason for Visit * Reason Onset Date Comments stronger medication 12/18/2023 Encounter Details Date Type Department Care Team ([facility] st Contact Info) Description 12/18/2023 Telephone [facility] ADULT DENTAL [address] [place] [address] Michelle Manning DDS [address] [place] [address] stronger medication Social History Tobacco Use Types Packs/Day Years [...] AM EDT documented as of this encounter Miscellaneous Notes * Telephone Encounter - Marilee Wu - 12/18/2023 9:01 AM EDT Patient states that medication is not working and she is swollen and in pain. She did feel some relief and started to get worse again. She states she has a new emergency referral for Oral Surgery butthey will not give the appt with active infection. I looked to see if there were any er visits on schedule and do not see any. Please confirm with patient if new antibiotic sent or if she needs to come back in DR documented in this encounter Plan of Treatment Upcoming Encounters Date Type Department Care Team (Late st Contact Info) Description 05/05/2025 2:00 PM EST Office Visit [facility] ADULT DENTAL [address] [place] [address] Glen Watkins, DMD [address] [place] [address] documented as of this encounter Visit Diagnoses Not on filedocumented in this encounter Care Teams Author Agent Relationship Specialty Start Date End Date Edy Lees DDS [address] [place] [address] PCP - General Dentist 03/23/22 documented as of this encounter
--- OUTSIDE RECORDS SUMMARY | 2025-03-10 17:23 | XMS_ITS | Encounter Summary ---
Author Organization [facility] [employer] [facility] Address [address] [place] [address] [address] [place] [address] Care Team Providers Care Doctor Of Dental Surgery Name Role Phone Edy Lees DDS Primary Care Provider [phone] Reason for Visit * Reason Comments Med Refill Encounter Details Date Type Department Care Team ([facility] st Contact Info) Description 01/21/2023 Refill [facility] ADULT DENTAL [address] [place] [address] Michelle Manning DDS [address] [place] [address] Social History Tobacco Use Types Packs/Day Years [...] encounter Miscellaneous Notes * Telephone Encounter - Michelle Manning DDS - 01/21/2023 1:37 PM EDT Approving, but needs appt for additional refills. documented in this encounter Plan of Treatment Upcoming Encounters Date Type Department Care Team (Late st Contact Info) Description 05/05/2025 2:00 PM EST Office Visit [facility] ADULT DENTAL [address] [place] [address] Glen Watkins, AGATA [address] [place] [address] documented as of this encounter Visit Diagnoses Not on filedocumented in this encounter Care Teams Doctor Of Dental Surgery Relationship Specialty Start Date End Date Edy Lees DDS [address] [place] [address] [place] [address] PCP - General Dentist 03/23/22 documented as of this encounter
--- OUTSIDE RECORDS SUMMARY | 2025-03-10 17:23 | XMS_ITS | Clinical Summary ---
Author Organization [employer] Address [address] [place] [address] [address] [place] [address] Care Team Providers Care Carton Stenciler Name Role Phone NabeelEdy cordoba DDRiley Primary Care Provider [phone] Allergies No known active allergies Medications FLUoxetine (PROzac) 40 MG capsule Take 1 capsule by mouth at bed time. Active Sodium Fluoride (PreviDent 5000 Plus) 1.1 % cream Apply 1 mg to teeth 3 times daily. 1 g 3 3 Active Additional Information Patient not taking.Reported on 12/10/2023 amoxicillin (Amoxil) 500 MG capsule TAKE 1 CAPSULE (500 MG) BY MOUTH EVERY 8 HOURS FOR 7 DAYS 21 capsule 3 Active Additional Information Patient not taking.Reported on 12/10/2023 ibuprofen 800 MG tablet TAKE 1 TABLET BY MOUTH EVERY 8 HOURS NEEDED FOR MILD PAIN FOR UP TO 10 DAYS 15 tablet 3 Active Additional Information Patient not taking.Reported on 12/10/2023 amoxicillin (Amoxil) 500 MG capsule Take 1 capsule (500 mg) by mouth every 8 (eight) hours for 7 days. 21 capsule 5 03/04/20 25 acetaminophen (Tylenol 8 Hour) 650 MG ER tablet Take 1 tablet (650 mg) by mouth every 8 (eight) hours if needed for moderate pain for up to 10 days. Do not crush, chew, or split. 15 tablet 5 03/07/20 25 ibuprofen 600 MG tablet Take 1 tablet (600 mg) by mouth every 6 (six) hours if needed for mild pain for up to 10 days. 15 tablet 03/07/20 25 Active Problems Problem Noted Date Diagnosed Date Dental caries 01/18/2023 Encounters Date Type Department Care Team Description 02/25/2025 11:30 AM EDT Office Visit [facility] ADULT DENTAL [address] [place] [address] Covington-Springer, Michelle, DDS Rampant dental caries (Primary Dx) from Last 3 Months Social History Tobacco Use Types Packs/Day Years Used Date Smoking Tobacco: Every Day Cigarettes Smokeless Tobacco: Never Tobacco Cessation:Ready to Q uit: Not Asked; Counseling Given: Not Answered Alcohol Use Standard Drinks/Week Comments Defer 0 (1 standard drink = 0.6 oz pur e alcohol) Comments Unknown Sex and Gender Information Value Date Recorded Sex Assigned at Female 03/26/2022 10:15 AM EDT Legal Sex Female 10:15 AM EDT Gender Identity Female 03/26/2022 10:15 AM EDT Sexual Orientation Straight 03/26/2022 10 :15 AM EDT Last Filed Vital Signs Vital Sign Reading Time Taken Comments Blood Pressure 132/80 02/25/2025 11:39 AM EDT Pulse 76 01/18/2023 10:25 AM EDT Temperature - - Respiratory Rate - - Oxygen Saturation - - Inhaled Oxygen Concentration - - Weight - - Height - - Body Mass Index - - Plan of Treatment Upcoming Encounters Date Type Department Care Team (Late st Contact Info) Description 05/05/2025 2:00 PM EST Office Visit [facility] ADULT DENTAL [address] [place] [address] Glen Watkins DMD [address] [place] [address] Health Maintenance Due Date Last Done Comments CT Colonography 1978 Colonoscopy 1978 Colorectal Cancer Screening 1978 Dental Prophylaxis 1978 Depression Screening 1978 FIT DNA/Cologuard 1978 FIT 1978 FOBT 1978 HIV Screening 1978 Lipid Panel 1978 SDOH Screening 1978 Sigmoidoscopy 1978 Disability Screening 1978 Alcohol/Substance Use Screening 1990 Family Planning (PISQ) 1993 Hepatitis C Screening 1996 Pneumococcal Vaccine: Pediatrics (0 to 5 Years) and At-Risk Patients (6 to 49) Years (1 of 2 - PCV) 1997 Pap Smear 12/13/1999 Hepatitis B Vaccines (2 of 3 - 19+ 3-dose series) 10/30/2004 10/02/2004 Cervical Cancer Screening 2008 HPV/Cotest 2008 Dental Oral Exam 04/02/2024 09/30/2023, 01/14/2023 Dental X-Ray: Bitewings 09/30/2024 09/30/19 24, 01/14/2023, 12/25/2022 COVID-19 Vaccine ( season) 2025 Influenza Vaccine (#1) 2025 8, 02/20/2017, 04/24/2016, Additional history exists Tobacco Screening 02/25/2026 02/25/2025 Mammogram 08/13/2026 08/13/2024, 08/13/2024 Dental X-Ray: Full Mouth 09/20/2026 09/20/2023, 08/05/2022 Zoster Vaccines (1 of 2) 2028 DTaP/Tdap/Td Vaccines (4 - Td or Tdap) 11/09/2030 11/09/2020, 02/11/2018, 01/06/2009 RSV Patients and Patients Aged 60 years or older (1 - 1-dose 75+ series) 2053 HIB Vaccines Aged Out No longer eligi ble based on patient's age to complete this topic HPV Vaccines Aged Out No longer eligi ble based on patient's age to complete this topic Hepatitis A Vaccines Aged Out No long er eligible based on patient's age to complete this topic IPV Vaccines Aged Out No longer eligi ble based on patient's age to complete this topic Meningococcal B Vaccine Aged Out No l onger eligible based on patient's age to complete this topic Meningococcal Vaccine Aged Out No emigdio shama eligible based on patient's age to complete this topic RSV under 20 months Aged Out No longe r eligible based on patient's age to complete this topic Rotavirus Vaccines Aged Out No longer eligible based on patient's age to complete this topic Procedures Procedure Name Priority Date/Time Associated Diagnosis Comments CASE PRESENTATION, DETAILED AND EXTENSIVE TREATMENT PLANNING Routine 02/25/2025 11:30 AM EDT Rampant dental caries INTRAORAL - PERIAPICAL FIRST RADIOGRAPHIC IMAGE Routine 02/25/2025 11:30 AM EDT Rampant dental caries PALLIATIVE (EMERGENCY) TREATMENT OF DENTAL PAIN - MINOR PROCEDURE Routine 02/25/2025 11:30 AM EDT Rampant dental caries BITEWINGS - 4 RADIOGRAPHIC IMAGES Routine 09/30/2023 8:00 AM EDT Encounter for dental examination Periodontal disease Dental calculus Dental caries PERIODIC ORAL EVALUATION - ESTABLISHED PATIENT Routine 09/30/2023 8:00 AM EDT Encounter for dental examination Periodontal disease Dental calculus Dental caries PANORAMIC RADIOGRAPHIC IMAGE Routine 09/20/2023 9:30 AM EDT Dental caries Dental abscess from Last 3 Months or Most Recently Relevant to Health Maintenance Insurance DENTAL - HSN PARTIAL (MEDICAID) Care Teams Carton Stenciler Relationship Specialty Start Date End Date Edy Lees DDS [address] [place] [address] PCP - General Dentist 03/23/22
--- OUTSIDE RECORDS SUMMARY | 2025-03-10 17:23 | XMS_ITS | Clinical Summary ---
Author Organization [facility] l[address] Address [address] [place] [address] Phone Care Team Providers Care Chief Business Officer Name Role Phone Clayton Spring MD Primary Care Provider [phone] Allergies No known active allergies Medications acetaminophen (TYLENOL 8 HOUR) 650 mg 8 hr tablet as needed. 3 Active buprenorphine- naloxone (Suboxone) 8-2 mg per SL film Place 2 films under the tongue. 3 Active doxepin (SINEquan) 25 mg capsule Take 1 capsule (25 mg total) by mouth. 3 Active fluoride, sodium, 1.1 % cream Apply 1 mg to teeth 3 times daily. 3 Active FLUoxetine (PROzac) 40 mg capsule Take 1 capsule (40 mg total) by mouth daily. Active QUEtiapine (SEROquel) 25 mg tablet Take 1 tablet (25 mg total) by mouth. 3 Active QUEtiapine (SEROquel) 100 mg tablet Take 1 Tablet by mouth at bedtime. Active vitamin iron fum-folic acid 27-0.8 mg per tablet Take 1 tablet by mouth 1 (one) time each day. 30 each 1 5 Active ibuprofen (ADVIL,MOTRIN) 800 mg tablet TAKE 1 TABLET BY MOUTH EVERY 8 HOURS IF NEEDED FOR MILD PAIN. 90 tablet 1 5 Active atorvastatin (LIPITOR) 10 mg tablet TAKE 1 TABLET BY MOUTH 1 TIME EACH DAY. 90 tablet 5 Active atorvastatin (LIPITOR) 10 mg tablet Take 1 tablet (10 mg total) by mouth 1 (one) time each day. 30 each 5 5 03/08/20 25 Discontinued Active Problems Problem Noted Date Diagnosed Date Severe sleep apnea 11/26/2024 Hypercholesterolemia 09/01/2024 Obesity (BMI 30-39.9) 02/13/2024 Dental caries 01/18/2023 Abnormal ultrasound of liver 02/19/2021 Overview (04/01/2024): 09/14. ?mild dilated common duct. Consider MRI. Unable to reach pt by phone. Letter sent. Abnormal Pap smear of cervix 07/17/2018 Overview (04/01/2024): Sees barrel planer, has colposcopy Breast mass 2017 Overview (04/01/2024): 12/11. Excision. Fibroadenoma Left foot drop 04/24/2016 Anemia 11/20/2007 Hypertriglyceridemia 11/20/2007 Depression 11/18/2007 Overview (04/01/2024): Has an appt with Claude Willis. Substance abuse ([facility] V24, [facility] V28) 11/17 Overview (04/01/2024): Hosp Heroin overdose 03/16/16 Methadone in past 05/11 alcohol, heroin 06/13 [facility] Cocaine pos. 04/14 [facility] Etoh. 05/14. Hosp Etoh, cocaine Alcohol dependence ([facility] V24, [facility] V28) Overview (04/01/2024): [facility] Immunizations Immunization Administration Dates Next Due Hepatitis B (Dioojmw-Z-Ngkhn , Recombivax HB-Adult) 19yo and older 10/02/2004 Influenza Quadravalent, MDCK , 0.5ml, preservative free (Flucelvax) 6mo and older 02/28/2018 Influenza Quadravalent, MDCK , 0.5ml, with preservative (Flucelvax) 6mo and older 02/20/2017 Influenza trivalent, 0.5mL, preservative free (Fluarix; FluLaval; Fluzone) ages 6mo and older (Afluria) 3 years and older 04/24/2016 PPD Test 08/19/2018, 7,07/26/2000,2000 Tdap Tetanus diptheria acell ular pertussis (Boostrix; Adacel) 7yo and older 02/11/2018,01/06/2009 Surgical History Surgery Date Site/Laterality Comments APPENDECTOMY PROCEDURE: HISTORICAL APPENDECTOMY; COMMENT: age 12 yr WRIST MASS EXCISION 1995 PROCEDURE: ND EXCISION GANGLION WRIST DORSAL/VOLAR PRIMARY; COMMENT: L TONSILLECTOMY PROCEDURE: HISTORICAL TONSILLECTOMY; COMMENT: age 12 yr BREAST LUMPECTOMY 2002 Left PROCEDURE: ---- BREAST LUMP BIOPSY ----; COMMENT: breast lump BREAST BIOPSY 2002 Left PROCEDURE: BX BREAST; PERC NEEDLE CORE W/IMAG GUID; COMMENT: lt. breast bxs x 2-benign BREAST SURGERY 2002 Left PROCEDURE: ND UNLISTED PROCEDURE BREAST; COMMENT: removed lumps lt. breast Medical History Medical History Date Comments Genital HSV DX:Genital HSV; COMMENT: last outbreak 2011 (minor) Smoker DX:Smoker Hypertriglyceridemia 11/20/2007 DX:Hypertri glyceridemia Abnormal Pap smear of cervix 07/17/2018 DX: Abnormal Pap smear of cervix; COMMENT: Sees barrel planer, has colposcopy Family History Medical History Relation Name Comments Diabetes Father Hypertension Maternal Grandfather Diabetes Maternal Grandmother CABG Relation Name Status Comments Brother Daughter Alive Father Alive Maternal Grandfather Maternal Grandmother Mother Alive Sister 1 Alive Sister 2 Alive Son Alive Social History Tobacco Use Types Packs/Day Years Used Date Smoking Tobacco: Every Day Cigarettes 0.5 32.8 Started: 1992 Smokeless Tobacco: Never Tobacco Cessation:Ready to Q uit: Not Asked; Counseling Given: Not Answered Alcohol Use Standard Drinks/Week Comments Not Currently 2 (1 standard drink = 0.6 oz pur e alcohol) Housing Instability Answer Date Recorde d Are you worried that in the next 2 months you may not have stable housing? No 06/22/2024 Food Access & Nutrition Answer Date Rec orded Do you have access to a vari ety of food including fruits and vegetables? Yes 06/22/2024 Access to Healthcare Answer Date Record ed Within the last 3 months, ho w many times did you visit the emergency department for your medical care? 0 06/22/2024 Health Literacy Answer Date Recorded How often do you need to hav e someone help you when you read instructions, pamphlets, or other written material from your doctor or pharmacy? Never 06/22/2024 Caregiver: How often do you need to have someone help you when you read instructions, pamphlets, or other written material from your doctor or pharmacy? Not on file 06/22/2024 Financial Risk Answer Date Recorded How hard is it for you to pa y for the very basics like food, housing, medical care, and air conditioning / heating? Not very hard 06/22/2024 Transportation Answer Date Recorded Has the lack of transportati on kept you from meetings, work, or from getting things needed for daily living? No Has the lack of transportati on kept you from medical appointments or from getting medications? No 06/22/2024 Social Isolation Answer Date Recorded How often do you feel lonely or isolated from th ose around you? Never 06/22/2024 Food Risk Answer Date Recorded Within the past 12 months we worried whether our food would run out before we got money to buy more. Never true 06/22/2024 Within the past 12 months th e food we bought just didn't last and we didn't have money to get more. Never true 06/22/2024 Dependent Care Answer Date Recorded Do you need help finding or paying for care for your loved ones. For example, child daycare worker or elderly care for an older adult? No 06/22/2024 Education Answer Date Recorded Do you think completing more education or training, like finishing a GED, going to college, or learning a trade, would be helpful for you? No 06/22/2024 Employment and Income Answer Date Recor ded During the last four weeks, have you been actively looking for work? No 06/22/2024 Living Situation Answer Date Recorded What is your living situation? Unrecognized valu e 06/22/2024 Comments No Sex and Gender Information Value Date Recorded Sex Assigned at Female 07/17/2024 4:08 PM EST Legal Sex Female 6:22 PM EST Gender Identity Female 07/17/2024 4:08 PM EST Sexual Orientation Choose not to disclose 2024 10:06 AM EDT Obstetrics History Para Term AB IAB SAB Ectopic Multiple Livin g Live Births 4 Last Filed Vital Signs Vital Sign Reading Time Taken Comments Blood Pressure 104/58 11/26/2024 1:38 PM EDT Pulse 92 11/26/2024 1:38 PM EDT Temperature 36.7 C (98.1 F) 11/26/2024 1:38 PM EDT Respiratory Rate - - Oxygen Saturation - - Inhaled Oxygen Concentration - - Weight 94.8 kg (209 lb 1.6 oz) 11/26/2024 1:38 P M EDT Height 167.6 cm (5' 6 ) 08/13/2024 9:22 AM EDT Body Mass Index 33.75 08/13/2024 9:22 AM EDT Plan of Treatment Upcoming Encounters Date Type Department Care Team (Late st Contact Info) Description 03/24/2025 3:30 PM EDT Office Visit Adult Medicine [facility] [address] [place] [phone] Eula Petersen NP [address] [place] [address] 04/09/2025 11:45 AM EST Office Visit Adult [facility] [address] [place] [phone] Shruti Gramajo, FANTA [address] [place] [address] Health Maintenance Due Date Last Done Comments Colorectal Cancer Screening: Colonoscopy 1978 Hepatitis A Vaccines (1 of 2 - Risk 2-dose series) 1997 Pneumococcal Vaccine: Pediatrics (0 to 5 Years) and At-Risk Patients (6 to 49 Years) (1 of 2 - PCV) 1997 Cervical Cancer Screening: Pap Smear 09/23/2020 09/23/2017, 09/23/2017, 09/23/2017 Social Influencers of Health Screening 06/22/2025 06/22/2024 Breast Cancer Screening 08/13/2026 08/14/19 25, 06/07/2017 DTaP,Tdap,and Td Vaccines (3 - Td or Tdap) 02/12/2028 02/11/2018, 01/06/2009 Cholesterol Screening (Lipid Panel) 06/24/2029 06/24/2024, 02/18/2023 RSV Immunization Adult Patients (1 - 1-dose 75+ series) 2053 Hepatitis B Vaccines Discontinued 10/02/2004 Hepatitis C Screening Completed 11/18/2007 HIV Screening Completed 09/09/2017 Influenza Vaccine Discontinued 02/28/2018, 02/20/2017, 04/24/2016 Depression Screening Completed 09/01/2024 COVID-19 Vaccine Discontinued HIB Vaccines Aged Out No longer eligi ble based on patient's age to complete this topic HPV Vaccines Aged Out No longer eligi ble based on patient's age to complete this topic IPV Vaccines Aged Out No longer eligi ble based on patient's age to complete this topic MMR Vaccines Aged Out No longer eligi ble based on patient's age to complete this topic Meningococcal ACWY Vaccine Aged Out N o longer eligible based on patient's age to complete this topic Meningococcal B Vaccine Aged Out No l onger eligible based on patient's age to complete this topic RSV Immunization Patients Under 20 months Aged Out No longer eligible based on patient's age to complete this topic Varicella Vaccines Aged Out No longer eligible based on patient's age to complete this topic Procedures Procedure Name Priority Date/Time Associated Diagnosis Comments MG MAMMO DIGITAL SCREENING W JOON BILAT Routine 08/13/2024 9:29 AM EDT Screening mammogram for breast cancer LIPID PANEL WITH REFLEX TO DIRECT LDL Routine 06/24/2024 8:59 AM EST Hypercholesterolemi a PAP SMEAR Routine 09/23/2017 HM HIV SCREENING Routine 09/09/2017 HEPATITIS C SCREENING Routine 11/18/2007 from Last 3 Months or Most Recently Relevant to Health Maintenance Results * MG Mammo Digital Screening w Joon bilat (08/13/2024 9:29 AM EDT) Anatomical Region Laterality Modality Breast Bilateral Mammography 08/13/2024 3:31 PM EDT Impressions 08/13/2024 3:32 PM EDT No evidence of breast malignancy. BI-RADS CATEGORY: 1 - NEGATIVE RECOMMENDATION: Screening bilateral mammogram is recommended in 1 year. Mammo Location: [facility], [address] [place] [address], [id number], . -------- FINAL REPORT -------- Dictated By: Yarely Pham Dictated Date: 08/13/2024 15:31 ET Assigned Physician: Yarely Pham Reviewed and Electronically Signed By: Yarely Pham Signed Date: 08/13/2024 15:32 ET Workstation ID: [id number] Transcribed By: Self Edit Transcribed Date: 08/13/2024 15:31 ET Narrative 08/13/2024 3:32 PM EDT CLINICAL: 43 years old, Female, routine annual exam. COMPARISON: 06/07/2017 TECHNIQUE: Bilateral MLO and CC views were obtained digitally with 3-D mammogram (digital breast tomosynthesis). Computer-aided detection was utilized in evaluation of this exam (CAD). FINDINGS: There is no evidence of suspicious mass or architectural distortion. No worrisome calcifications are evident. There has been no significant change from prior exam(s). BREAST DENSITY: C - The breasts are heterogeneously dense which may obscure small masses. Procedure Note Yarely Pham MD - 08/13/2024 CLINICAL: 43 years old, Female, routine annual exam. COMPARISON: 06/07/2017 TECHNIQUE: Bilateral MLO and CC views were obtained digitally with 3-Dmammogram (digital breast tomosynthesis). Computer-aided detection wasutilized in evaluation of this exam (CAD). FINDINGS: There is no evidence of suspicious mass or architectural distortion. Noworrisome calcifications are evident. There has been no significantchange from prior exam(s). BREAST DENSITY: C - The breasts are heterogeneously dense which mayobscure small masses. IMPRESSION: No evidence of breast malignancy. BI-RADS CATEGORY: 1 - NEGATIVE RECOMMENDATION: Screening bilateral mammogram is recommended in 1 year. Mammo Location: [facility], [address] [place] [address], [id number], . -------- FINAL REPORT -------- Dictated By: Yarely Pham Dictated Date: 08/13/2024 15:31 ET Assigned Physician: Yarely Pham Reviewed and Electronically Signed By: Yarely Pham Signed Date: 08/13/2024 15:32 ET Workstation ID: [id number] Transcribed By: Self Edit Transcribed Date: 08/13/2024 15:31 ET Juan Carlos JEWELL IMG BI PROCEDURES Final Result * (ABNORMAL) Lipid panel with reflex to direct LDL (06/24/2024 8:59 AM EST) Cholesterol 275(H) 0 - 200 mg/dL LAB CHEMISTRY METHOD 06/24/2024 1:18 PM EST [facility] Triglycerides 213(H) 0 - 150 mg/dL LAB CHEMISTRY METHOD 06/24/2024 1:18 PM EST [facility] HDL 40 >=40 mg/dL LAB CHEMISTRY METHOD 06/24/2024 1:18 PM EST [facility] LDL Calculated 192(H) 0 - 100 mg/dL LAB CHEMISTRY METHOD 06/24/2024 1:18 PM EST [facility] VLDL Cholesterol Chas 42.6 mg/dL LAB CHEMISTRY METHOD 06/24/2024 1:18 PM EST [facility] Non HDL Chol. (LDL+VLDL) 235(H) <145 mg/dL LAB CHEMISTRY METHOD 06/24/2024 1:18 PM EST [facility] Chol/HDL Ratio 6.9(H) 0.0 - 4.4 LAB CHEMISTRY METHOD 06/24/2024 1:[address] [facility] Blood Venous blood specimen / Unknown Venipuncture / Unknown 06/24/2024 8:59 AM EST 06/24/2024 8:59 AM EST us Juan Carlos JEWELL LAB BLOOD ORDERABLES Final Res [facility] [address] [place] [address], * Pap smear (09/23/2017) 09/23/2017 Narrative HISTORICAL TESTING LAB RESULTING AGENCY - 09/30/2017 8:17 AM EDT [id number] THINPREP PAP, IMAGED: ATYPICAL SQUAMOUS CELLS OF UNDETERMINED SIGNIFICANCE (ASCUS) . RESULT OF APTIMA HIGH RISK HPV ASSAY: POSITIVE (SEROTYPES 16,18,31,33,35,39,45,51,52,56,58,59,66,68) VALARIE GUEVARA, MAGUI(ASCP) (CASE SCREENED 09 25 2017) TAMIA JOHNSON M.D., PATHOLOGIST (CASE ELECTRONICALLY SIGNED 09 27 2017) ADEQUACY: SATISFACTORY. ENDOCERVICAL/TRANSFORMATION ZONE COMPONENT PRESENT. SOURCE: THINPREP PAP HPV ANY DX: REFLEX 16 AND 18, CERVICAL, IMAGED: CLINICAL INFORMATION: HPV ANY DIAGNOSIS. , PAP HX POS, HPV NEG, LMP 06/27/2017 [Z12.4, Z01.419] Xiomara MENARD LAB CYTOLOGY ORDERABLES Final Result HISTORICAL TESTING LAB RESULTING AGENCY * HIV Screening (09/09/2017) HIV Screening Abstracted Historical Provider HEALTH MAINTENANCE Final Result * Hepatitis C Screening (11/18/2007) Hepatitis C Screening Abstracted Historical Provider HEALTH MAINTENANCE Final Result from Last 3 Months or Most Recently Relevant to Health Maintenance Insurance [employer] [facility] Care Teams Chief Business Officer Relationship Specialty Start Date End Date Clayton Spring MD [address] [place] [id number] PCP - General 01/06/09
== END 2025-03-10 14:13 | disposition home or self-care (01) ==
PROVIDERS: PCP Pediatrics; Visit Provider Nurse Practitioner Family
DX: Z01.818 Encounter for other preprocedural examination (principal); Z12.11 Encounter for screening for malignant neoplasm of colon; K59.00 Constipation, unspecified; E78.5 Hyperlipidemia, unspecified; G47.30 Sleep apnea, unspecified; R21 Rash and other nonspecific skin eruption
CPT/HCPCS: S0285

== ENCOUNTER 2025-05-14 15:10 | Outpatient (AMB) | payer OTHER, SELFPAY ==
[2025-05-14 15:22] VITALS: BP 122/74; PULSE 82; O2SAT 94; BMI 36.8
--- NOTE | 2025-05-14 15:22 | A.OFFVIS_ITS ---
Vital Signs 05/14/25 15:22 Height 5 ft 4 in Weight 214 lb 4 oz BMI 36.8 BP 122/74 Blood Pressure Location Rt brachial Position Sitting Pulse 82 Pulse Source Pulse Oximeter Pulse Oximetry (%) 94 Oxygen Delivery Method Room Air Intake Visit Reasons: E-CLIENT FINANCE ANALYST Severe Sleep Apnea Intake Note: Patient presents CLIENT FINANCE ANALYST ADAMARIS. Patient had sleep study done that came back with severe sleep apnea-in referral(AHI-37.3, JENN-76%.) She is looking to start CPAP. Accompanied by: Self / Same As Patient Allergies No Known Allergies (No Known Allergies*) Allergy (Verified 05/14/25 15:27) HPI Comments Details: 44 year old female referred to us by her pcp for an evaluation of ADAMARIS. PSG Reviewed with pt AHI is 37 and O2 desaturation to 75%, nocturnal hypoxemia, start cpap [id number] and f/u with pulse oximetry overnight for nocturnal hypoxemia. She is a mouth breather, needs a full face mask with chin straps. 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 Per her partners she stops breathing, gasps for air, snores loudly and has multiple arousals. She is on quetiapine 50-100mg po to induce sleep, notices s/e of weight gain. She is motivated to lose weight, joined [employer] going 1x a week. She denies morning headaches, denies bruxism and clenching of the jaw, and sleeps with her mouth open. She denies rls symptoms and or paresthesias, though has left foot cramps occasionally and difficulty lifting her foot. She walks in her sleep a few times a week and ends up in the kitchen at 2am, starts the water at the sink, hears it running and then wakes up. She has acid reflux managed with diet and lifestyle changes, she takes tums as needed. Memory is good, mood is stable. She is a cigarette smoker of 1pk per day, deciding to quit, needs support. Denies MJ, no edibles. FH + dementia. [facility] Medical History Rash Sleep apnea Dyslipidemia Constipation Colon cancer screening Trichomonas contact, treated ASCUS with positive high risk HPV Substance abuse Depression Left foot drop Hypertriglyceridemia Alcohol dependence Surgical History History of breast lump removal Hx of tonsillectomy Hx of appendectomy Family History Maternal Grandmother History of quadruple bypass Diabetes mellitus CVD (cardiovascular disease) Paternal Grandfather Colon cancer screening Social History Alcohol intake: current Alcohol intake frequency: 3 or more drinks per day Alcohol type: hard liquor Comment: Helped relieve withdrawal symptoms Cigarettes Per Day: 10 Gender identity: Female Female Reproductive History Menstrual Age of Menarche: 10 Physical Exam Vital Signs: Last Vital Signs Pulse 82 05/14/25 15:22 BP 122/74 05/14/25 15:22 Pulse Ox 94 05/14/25 15:22 Oxygen Delivery Method Room Air 05/14/25 15:22 BMI result Body Mass Index 36.8 Const General: cooperative, comfortable and no acute distress Orientation/consciousness: patient oriented x3 HEENT Face and sinus: Yes face symmetric Teeth and gingiva: other (mallampti score is 4) Eyes Pupils: Equal, round and reactive pupils present Neck Neck: Yes full ROM Resp Effort & Inspection: normal respiratory effort and able to speak in complete sentences Neuro General: patient oriented x3 and moves all extremities Cranial nerves: Yes Equal, round and reactive pupils present, Yes Normal accommodation reflex present, Yes Nystagmus not present, Yes Ability to bilaterally rotate head present and Yes Ability to bilaterally elevate shoulders present Cognition (Neuro): normal cognition Gait exam (Neuro): Normal gait present Motor exam (neuro): 5/5 motor strength present throughout and Normal motor muscle tone present throughout Psych Appearance: grossly normal Mental Status: mental status grossly normal Thought process: Normal thought process present Insight: Good insight present (Psych) Results Reviewed Results Reviewed: HST c/w severe adamaris and reviewed with pt AHI is 37/hr and O2 nadirs to 75%. Assessment & Plan Assessment & Plan (1) ADAMARIS (obstructive sleep apnea): Code(s): G47.33 - Obstructive sleep apnea (adult) (pediatric) Category: Medical (2) Weakness of left foot: Code(s): R29.898 - Other symptoms and signs involving the musculoskeletal system Category: Medical (3) Chronic fatigue: Code(s): R53.82 - Chronic fatigue, unspecified Category: Medical (4) Nocturnal hypoxemia: Code(s): G47.34 - Idiopathic sleep related nonobstructive alveolar hypoventilation Category: Medical Plan HST reviewed with pt. she has severe adamaris AHI is 37/hr and O2 Nadirs to 75%. Will start her on therapy [id number]. Nocturnal hypoxemia will assess with pulse oximetry overnight. F/U for compliance. Orders: Orders Overnight Pulse Oximetry Today G47.34 - Idiopathic sleep related nonobstructive alveolar hypoventilation Patient Instructions: Please complete the following fasting labs to rule out deficiencies. CBC/CMP/ B12/ Vit D/ TSH/ Homocysteine and MMA/ Ferritin. Sleep Hygiene provided: set a scheduled bedtime and wake time to help regulate the circadian rhythm and balance the release of pituitary hormones. Sleep in a dark room, temperatures below 68 degrees, and no devices n bed. Limit caffeinated products 6 hours prior to bed, and limit fluids 2-4 hours prior to bed. Gentle night yoga, diffusing essential oils, and playing soft music can be relaxing. Will start her on therapy and monitor for compliance. Coding Level of Care Code New Pt Level 4 (26512) Diagnoses ADAMARIS (obstructive sleep apnea) G47.33 Weakness of left foot R29.898 Chronic fatigue R53.82 Nocturnal hypoxemia G47.34 Sleep Questionnaire Difficulty falling asleep: No Difficulty staying asleep?: Yes Number of arousals: 5 Snoring: Yes Witnessed apneas: Yes Gasping arousals: Yes Nocturia: No GERD: Yes Vivid dreams: Yes Acting out dreams: No Abnormal behavior in sleep: Yes (sleep walking ) Abnormal movements in sleep: No Morning headaches: No Excessive daytime sleepiness: Yes Daytime naps: No Restless legs: No Hallucinations: No Sleep paralysis: No Drop attacks: No Sleep Study: Yes CPAP: No
--- OUTSIDE RECORDS SUMMARY | 2025-05-14 16:22 | XMS_ITS | Encounter Summary ---
Author Organization [employer] Address [address] [place] [address] [address] [place] [address] Care Team Providers Care Geometry Teacher Name Role Phone Edy Lees DDS Primary Care Provider [phone] Reason for Visit * Reason Comments Med Refill Encounter Details Date Type Department Care Team ([facility] st Contact Info) Description 01/21/2023 Refill [facility] [address] [place] [address] Michelle Manning DDS [address] [place] [address] Social History Tobacco Use Types Packs/Day Years [...] Care Team (Late st Contact Info) Description 06/23/2025 8:45 AM EST Office Visit [facility] [address] [place] [address] Glen Watkins, AG[place] [address] [place] [address] documented as of this encounter Visit Diagnoses Not on filedocumented in this encounter Care Teams Geometry Teacher Relationship Specialty Start Date End Date Edy Lees DDS [address] [place] [address] [place] [id number] PCP - General Dentist 03/23/22 documented as of this encounter
--- OUTSIDE RECORDS SUMMARY | 2025-05-14 16:22 | XMS_ITS | Clinical Summary ---
Author Organization [employer] Address [address] [facility] 7t [place] [address] Care Team Providers Care Plastics Engineer Name Role Phone NabeelEdy cordoba DDRiley Primary Care Provider [phone] Allergies No known active allergies Medications FLUoxetine [...] Additional Information Patient not taking.Reported on 12/10/2023 Buprenorphine HCl-Naloxone HCl (Suboxone) 8-[address] 2 Film under the tongue. 3 Active amoxicillin-cla vulanate (Augmentin) 875-125 MG tablet Take 1 tablet by mouth 2 times daily for 10 days. 20 tablet 5 05/15/20 25 Active ibuprofen 600 MG tablet Take 1 tablet (600 mg) by mouth every 6 (six) hours if needed for mild pain for up to 10 days. 20 tablet 5 05/15/20 25 Active Active Problems Problem Noted Date Diagnosed Date Dental caries 01/18/2023 Encounters Date Type Department Care Team Description 05/05/2025 2:00 PM EST Office Visit [facility]ULT [facility] [address] [place] [address] Glen Watkins DMD 05/05/2025 Telephone [facility]ULT [facility] [address] [place] [address] Glen Watkins DMD appt with OS 04/28/2025 Travel 02/25/2025 11:30 AM EDT Office Visit [facility]ULT [facility] [address] [place] [address] Covington-Springer, Michelle, DDS Rampant dental caries (Primary [...] Description 06/23/2025 8:45 AM EST Office Visit [facility] [address] [place] [address] Glen Watkins DMD [address] [place] [address] Health Maintenance Due Date Last Done Comments [...] 09/30/19 24, 01/14/2023, 12/25/2022 COVID-19 Vaccine ( - 2024- season) 2025 Influenza Vaccine (#1) 2025 8, [...] Procedure Name Priority Date/Time Associated Diagnosis Comments CONSULTATION - DIAGNOSTIC SERVICE PROVIDED BY DENTIST OR PHYSICIAN OTHER THAN REQUESTING DENTIST OR PHYSICIAN Routine 05/05/2025 2:00 PM EST CASE PRESENTATION, DETAILED AND EXTENSIVE TREATMENT PLANNING [...] DENTAL - HSN PARTIAL (MEDICAID) Care Teams Plastics Engineer Relationship Specialty Start Date End Date Edy Lees DDS [address] [place] [address] [place] [address] PCP - General Dentist 03/23/22
--- OUTSIDE RECORDS SUMMARY | 2025-05-14 16:22 | XMS_ITS | Encounter Summary ---
Author Organization [facility] Address [address] [place] [address] Care Team Providers Care Administrator Pesticide Name Role Phone Clayton Spring MD Primary Care Provider [phone] Encounter Details Date Type Department Care Team ([facility] st Contact Info) Description 04/19/2025 Telephone Adult Medicine - [place] [address] [place] [address] Jocelyn Burton MA Social History Tobacco Use Types Packs/Day Years Used Date Smoking Tobacco: Every Day Cigarettes 0.5 33 Started: 1992 Smokeless Tobacco: Never Alcohol Use Standard Drinks/Week Comments Not Currently [...] care for your loved ones. For example, director of early childhood or elderly care for an older adult? [...] not to disclose 2024 10:06 AM EDT documented as of this encounter Progress Notes * FANTA Bowen - 04/19/2025 11:03 AM EST Please see patient's message- I feel like we tried for this under sleep apnea already documented in this encounter Plan of Treatment Upcoming Encounters Date Type Department Care Team (Late st Contact Info) Description 10/07/2025 10:00 AM EDT Office Visit Adult Medicine - [address] [place] [address] Shruti Gramajo PA [address] [place] [address] documented as of this encounter Visit Diagnoses Not on filedocumented in this encounter Additional Health Concerns Assessment Noted Time PHQ-9 Depression Total Score: 0 09/02/19 25 9:58 AM EDT documented as of this encounter Care Teams Administrator Pesticide Relationship Specialty Start Date End Date Clayton Spring MD [address] [place] [address] PCP - General 01/06/09 documented as of this encounter
--- OUTSIDE RECORDS SUMMARY | 2025-05-14 16:22 | XMS_ITS | Patient Health Record ---
Author Organization [facility] Address [address] [place] [address] Care Team Providers Care Poultry Hatchery Laborer Name Role Phone Joaquín Spring MD Primary Care Provider Unavail able Nathalia Ramirez Unavailable [phone] Allergies No Known Allergies Reason For Referral [...] Status Risk Notes Problem Acquired hallux valgus (62180465) Hallux valgus (acquired), right foot (M20.11) Active confirmed Problem Smoker (18196972) Smoker (F17.200) Active confirmed Plan Of Treatment No Information Insurance Providers Payer Name Payer Address Payer Phone Subscriber Number Group Number Insured Name Patient Relationship to Insured Coverage Start Date Coverage End Date Blue Benefits [address] [address] [place] [address] [id number] Vani Pak Self - patient is the insured Medical (General) History Medical History History ICD Code Chicken pox Surgical History Surgery Date(Month/Year) appendectomy 1995 tonsillectomy 1996
--- OUTSIDE RECORDS SUMMARY | 2025-05-14 16:22 | XMS_ITS | Encounter Summary ---
Author Organization [employer] Address [address] [place] [address] 7 [place] [address] Care Team Providers Care Draw Frame Runner Name Role Phone NabeelEdy cordoba BEVERLY Primary Care Provider [phone] Reason for Visit * Reason Onset Date Comments appt with OS 05/05/2025 Encounter Details Date Type Department Care Team ([facility] st Contact Info) Description 05/05/2025 Telephone [facility] ADULT DENTAL [address] [place] [address] Glen Watkins, DMD [address] [place] [address] appt with OS Social History Tobacco Use Types Packs/Day Years [...] * Telephone Encounter - Marilee Wu - 05/05/2025 2:44 PM EST Patient states that OS in [facility] informed her she needs an appointment as soon as possible for extractions. Number for [facility] dental was given to patient and informed to ask for Darcie for scheduling. Per patient Please return call to patient DR documented in this encounter Plan of Treatment Upcoming Encounters Date Type Department Care Team (Late st Contact Info) Description 06/23/2025 8:45 AM EST Office Visit [facility] ADULT DENTAL [address] [place] [address] Nateyodit Glen, DMD [address] [place] [address] documented as of this encounter Visit Diagnoses Not on filedocumented in this encounter Care Teams Draw Frame Runner Relationship Specialty Start Date End Date Edy Lees DDS [address] [facility] [place] [address] PCP - General Dentist 03/23/22 documented as of this encounter
--- OUTSIDE RECORDS SUMMARY | 2025-05-14 16:22 | XMS_ITS | Encounter Summary ---
Author Organization [employer] Address [address] [place] [address] [address] [place] [address] Care Team Providers Care Bias Machine Operator Helper Name Role Phone Edy Lees DDS Primary Care Provider [phone] Encounter Details Date Type Department Care Team (Late st Contact Info) Description 12/18/2023 Orders Only [facility] ADULT D[facility] [address] [place] [address] Michelle Manning DDS [address] [place] [address] Social History Tobacco Use Types Packs/Day Years [...] Description 06/23/2025 8:45 AM EST Office Visit [facility] ADULT DENTAL [address] [place], [place] [address] Glen Watkins, AGATA [address] [place] [address] documented as of this encounter Visit Diagnoses Not on filedocumented in this encounter Care Teams Bias Machine Operator Helper Relationship Specialty Start Date End Date Edy Lees DDS [address] [facility] [place] [address] PCP - General Dentist 03/23/22 documented as of this encounter
--- OUTSIDE RECORDS SUMMARY | 2025-05-14 16:22 | XMS_ITS | Clinical Summary ---
Author Organization [facility] [address] [facility] [address] Address [address] [place] [address] Phone Care Team Providers Care Housing Court Judge Name Role Phone Clayton Spring MD Primary Care Provider Allergies No known active allergies Medications acetaminophen (TYLENOL 8 HOUR) 650 mg 8 hr tablet as needed. 01/18/2023 Active buprenorphine-n aloxone (Suboxone) 8-[address] film [address] 2 films under the tongue. 07/02/2022 Active doxepin (SINEquan) 25 mg capsule Take 1 capsule (25 mg total) by mouth. 07/01/2022 Active fluoride, sodium, 1.1 % cream Apply 1 mg to teeth 3 times daily. 01/14/2023 Active FLUoxetine (PROzac) 40 mg capsule Take 1 capsule (40 mg total) by mouth daily. Active QUEtiapine (SEROquel) 25 mg tablet Take 1 tablet (25 mg total) by mouth. 06/22/2022 Active QUEtiapine (SEROquel) 100 mg tablet Take 1 Tablet by mouth at bedtime. Active vitamin iron fum-folic acid 27-0.8 mg per tablet Take 1 tablet by mouth 1 (one) time each day. 30 each 1 06/22/2024 Active ibuprofen (ADVIL,MOTRIN) 800 mg tablet TAKE 1 TABLET BY MOUTH EVERY 8 HOURS IF NEEDED FOR MILD PAIN. 90 tablet 1 08/19/2024 Active atorvastatin (LIPITOR) 10 mg tablet TAKE 1 TABLET BY MOUTH 1 TIME EACH DAY. 90 tablet 03/08/2025 Active triamcinolone (KENALOG) 0.1 % cream Apply to affected area 1-2 times daily as needed. 15 g 04/09/2025 06/08/19 Active tirzepatide, weight loss, (Zepbound) 2.5 mg/0.5 mL injectionIndica tions:Obesity (BMI 30-39.9),Severe sleep apnea Inject 0.5 mL (2.5 mg total) under the skin every 7 (seven) days. For 4 weeks then request dose increase 2 mL 04/09/2025 Active Active Problems Problem Noted Date Diagnosed Date Severe sleep apnea 11/26/2024 Hypercholesterolemia 09/01/2024 Obesity (BMI 30-39.9) 02/13/2024 Dental caries 01/18/2023 Abnormal ultrasound of liver 02/19/2021 Overview (04/01/2024): 09/14. ?mild dilated common duct. Consider MRI. Unable to reach pt by phone. Letter sent. Abnormal Pap smear of cervix 07/17/2018 Overview (04/01/2024): Sees [employer] agent, has colposcopy Breast mass 2017 Overview (04/01/2024): 12/11. Excision. Fibroadenoma Left foot drop 04/24/2016 Anemia 11/20/2007 Hypertriglyceridemia 11/20/2007 Depression 11/18/2007 Overview (04/01/2024): Has an appt with Claude Willis. Substance abuse 11/18/2007 Overview (04/01/2024): Hosp Heroin overdose 03/16/16 Methadone in past 05/11 alcohol, heroin 06/13 [facility] Cocaine pos. 04/14 [facility] Etoh. 05/14. Hosp Etoh, cocaine Alcohol dependence 10/21/2007 Overview (04/01/2024): [facility] Encounters Date Type Department Care Team Description 04/19/2025 Telephone Adult Medicine [place] [address] [place] [address] Jocelyn Burton EVA 04/09/2025 11:45 AM EST Office Visit Adult Medicine - [place] [address] [place] [address] Shruti Gramajo PA Obesity (BMI 30-39.9) (Primary Dx); Severe sleep apnea; Eczema, unspecified type; Hypercholesterolemia; Elevated glucose; Moderate episode of recurrent major depressive disorder (CMS/HCC V24, CMS/HCC V28) 04/09/2025 Telephone Adult Medicine - [place] [address] [place] [address] Clayton Spring MD from Last 3 Months Immunizations Immunization Administration Dates Next Due Hepatitis B (Burugri-T-Suknv , Recombivax HB-Adult) 19yo and older 10/02/2004 [...] 12 yr WRIST MASS EXCISION 1995 PROCEDURE: DC EXCISION GANGLION WRIST DORSAL/VOLAR PRIMARY; COMMENT: L TONSILLECTOMY PROCEDURE: HISTORICAL TONSILLECTOMY; COMMENT: age 12 yr BREAST LUMPECTOMY 2002 Left PROCEDURE: ---- BREAST LUMP BIOPSY ----; COMMENT: breast lump BREAST BIOPSY 2002 Left PROCEDURE: BX BREAST; PERC NEEDLE CORE W/IMAG GUID; COMMENT: lt. breast bxs x 2-benign BREAST SURGERY 2002 Left PROCEDURE: DC UNLISTED PROCEDURE BREAST; COMMENT: removed lumps lt. breast Medical History Medical History Date Comments Genital HSV DX:Genital HSV; COMMENT: last outbreak 2011 (minor) Smoker DX:Smoker Hypertriglyceridemia 11/20/2007 DX:Hypertri glyceridemia Abnormal Pap smear of cervix 07/17/2018 DX: Abnormal Pap smear of cervix; COMMENT: Sees [employer] agent, has colposcopy Family History Medical History Relation Name Comments Diabetes Father Hypertension Maternal Grandfather Diabetes Maternal Grandmother CABG Relation Name Status Comments Brother Daughter Alive Father Alive Maternal Grandfather Maternal Grandmother Mother Alive Sister 1 Alive Sister 2 Alive Son Alive Social History Tobacco Use Types Packs/Day Years Used Date Smoking Tobacco: Every Day Cigarettes 0.5 33 Started: 1992 Smokeless Tobacco: Never Tobacco Cessation:Ready [...] for your loved ones. For example, child abuse worker or elderly care for an older [...] Sign Reading Time Taken Comments Blood Pressure 114/54 04/09/2025 11:41 AM EST Pulse 95 04/09/2025 11:41 AM EST Temperature 36.7 C (98.1 F) 11/26/2024 1:38 PM EDT Respiratory Rate - - Oxygen Saturation 96% 04/09/2025 11:41 AM EST Inhaled Oxygen Concentration - - Weight 98.1 kg (216 lb 3.2 oz) 04/09/2025 11:41 AM EST Height 167.6 cm (5' 6 ) 08/13/2024 9:22 AM EDT Body Mass Index 34.9 08/13/2024 9:22 AM EDT Plan of Treatment Upcoming Encounters Date Type Department Care Team (Late st Contact Info) Description 10/07/2025 10:00 AM EDT Office Visit Adult Medicine [facility] [address] [place] [address] Shruti Gramajo PA [address] [place] [address] Health Maintenance Due Date Last Done Comments Colorectal Cancer Screening: Colonoscopy 1978 Hepatitis A Vaccines (1 of 2 - Risk 2-dose series) 1997 Pneumococcal Vaccine: Pediatrics (0 to 5 Years) and At-Risk Patients (6 to 49 Years) (1 of 2 - PCV) 1997 Cervical Cancer Screening: Pap Smear 09/23/2020 09/23/2017, 09/23/2017 Social Influencers of Health Screening 06/22/2025 06/22/2024 Breast Cancer Screening 08/13/2026 08/14/19, 06/07/2017 DTaP,Tdap,and Td Vaccines (3 - Td [...] EST Hypercholesterolemi a PAP SMEAR Routine 09/23/2017 HIV SCREENING Routine 09/09/2017 HEPATITIS C SCREENING [...] year. Mammo Location: [facility] , [address] [place] [address], [address], . -------- FINAL REPORT -------- Dictated By: Yarely Pham Dictated Date: 08/13/2024 15:31 ET Assigned Physician: Yarely Pham Reviewed and Electronically Signed By: Yarely Pham Signed Date: 08/13/2024 15:32 ET Workstation ID: [id number] Transcribed By: Self Edit Transcribed Date: 08/13/2024 [...] year. Mammo Location: [facility] , [address] [place] [address], [address], . -------- FINAL REPORT -------- Dictated By: Yarely hPam Dictated Date: 08/13/2024 15:31 ET Assigned Physician: Yarely Pham Reviewed and Electronically Signed By: Yarely Pham Signed Date: 08/13/2024 15:32 ET Workstation ID: [id number] Transcribed By: Self Edit Transcribed Date: 08/13/2024 15:31 ET Juan Carlos JEWELL IM BI PROCEDURES Final Result * (ABNORMAL) Lipid panel with reflex to direct LDL (06/24/2024 8:59 AM EST) Cholesterol 275(H) 0 - 200 mg/dL LAB CHEMISTRY METHOD 06/24/2024 1:18 PM EST [facility] Triglycerides 213(H) 0 - 150 mg/dL LAB CHEMISTRY METHOD 06/24/2024 1:18 PM EST [facility] HDL 40 >=40 mg/dL LAB CHEMISTRY METHOD 06/24/2024 1:18 PM EST [facility] LDL Calculated 192(H) 0 - 100 mg/dL LAB CHEMISTRY METHOD 06/24/2024 1:18 PM EST [facility] VLDL Cholesterol Chas 42.6 mg/dL LAB CHEMISTRY METHOD 06/24/2024 1:18 PM EST [facility] Non HDL Chol. (LDL+VLDL) 235(H) <145 mg/dL LAB CHEMISTRY METHOD 06/24/2024 1:18 PM EST [facility] Chol/HDL Ratio 6.9(H) 0.0 - 4.4 LAB CHEMISTRY METHOD 06/24/2024 1:18 PM EST [facility] Blood Venous blood specimen / Unknown Venipuncture / Unknown 06/24/2024 8:59 AM EST 06/24/2024 8:59 AM EST Juan Cralos JEWELL LAB BLOOD ORDERABLES Final Res ult [facility] [address] [place] [address], * Pap smear (09/23/2017) 09/23/2017 Narrative HISTORICAL TESTING LAB RESULTING AGENCY - 09/30/2017 8:17 AM EDT [id number] THINPREP PAP, IMAGED: ATYPICAL SQUAMOUS CELLS OF UNDETERMINED SIGNIFICANCE (ASCUS) . RESULT OF APTIMA HIGH RISK HPV ASSAY: POSITIVE (SEROTYPES 16,18,31,33,35,39,45,51,52,56,58,59,66,68) MAGUI DODGE(ASCP) (CASE SCREENED 09 25 2017) TAMIA JOHNSON M.D., PATHOLOGIST (CASE ELECTRONICALLY SIGNED 09 27 2017) ADEQUACY: SATISFACTORY. ENDOCERVICAL/TRANSFORMATION ZONE COMPONENT PRESENT. SOURCE: THINPREP PAP HPV ANY DX: REFLEX 16 AND 18, CERVICAL, IMAGED: CLINICAL INFORMATION: HPV ANY DIAGNOSIS. , PAP HX POS, HPV NEG, LMP 06/27/2017 [Z12.4, Z01.419] Xiomara Freed CNM LAB CYTOLOGY ORDERABLES Final Result HISTORICAL TESTING LAB RESULTING AGENCY * HIV Screening (09/09/2017) HIV Screening Abstracted Historical Provider HEALTH MAINTENANCE Final Result * Hepatitis C Screening (11/18/2007) Hepatitis C Screening Abstracted us Historical Provider HEALTH MAINTENANCE Final Result from Last 3 Months or Most Recently Relevant to Health Maintenance Insurance [employer] [facility] Care Teams Housing Court Judge Relationship Specialty Start Date End Date Clayton Spring MD [address] [place] [id number] PCP - General 01/06/09
--- OUTSIDE RECORDS SUMMARY | 2025-05-14 16:22 | XMS_ITS | Encounter Summary ---
Author Organization [employer] Address [address] [place] [address] 7 [place] [address] Care Team Providers Care Stitcher Utility Name Role Phone Nabeel, Edy DDRiley Primary Care Provider [phone] Reason for Visit * Reason Onset Date Comments stronger medication 12/18/2023 Encounter Details Date Type Department Care Team ([facility] st Contact Info) Description 12/18/2023 Telephone [facility] ADULT DENTAL [address] [place] [address] Michelle Manning DDS [address] [place] [address] stronger medication Social History Tobacco Use Types [...] Description 06/23/2025 8:45 AM EST Office Visit [facility] ADULT DENT[facility] [address] [place] [address] Glen Watkins, DMD [address] [place] [address] documented as of this encounter Visit Diagnoses Not on filedocumented in this encounter Care Teams Stitcher Utility Relationship Specialty Start Date End Date Edy Lees DDS [address] [facility] [place] [address] PCP - General Dentist 03/23/22 documented as of this encounter
== END 2025-05-14 16:10 | disposition home or self-care (01) ==
LOC: HO.HSMS 15:11
PROVIDERS: PCP Pediatrics; Visit Provider Physician Assistant Medical
DX: G47.33 Obstructive sleep apnea (adult) (pediatric) (principal); R29.898 Other symptoms and signs involving the musculoskeletal system; R53.82 Chronic fatigue, unspecified; G47.34 Idiopathic sleep related nonobstructive alveolar hypoventilation
CPT/HCPCS: 99204